=== PATIENT | female | born 1990 | race Two or more races ===

== ENCOUNTER 2023-04-19 05:30 | Day surgery (SDC) | payer OTHER ==
[2023-04-17 14:24] LABS: HEMATOCRIT 39.3 % (36.0-45.00); HEMOGLOBIN 12.8 g/dL (12.0-15.00); MEAN CELL VOLUME 89.9 fL (80.00-100.00); MEAN CORPUSCULAR HEMOGLOBIN 29.2 pg (27.00-32.0); MEAN CORPUSCULAR HGB CONC 32.4 g/dl (32.0-36.0); PLATELET COUNT 344 K/uL (150-450); RED BLOOD COUNT 4.38 M/uL (4.00-6.00)
[2023-04-17 15:04] LABS: ALBUMIN 3.6 gm/dL (3.4-5.0); BILIRUBIN TOTAL 0.39 mg/dL (0.3-1.2); CALCIUM 9.3 mg/dL (8.5-10.1); CREATININE SERUM 0.54 mg/dL (0.55-1.02); GFR 129.23; GLOBULINA 4.2 G/DL (2.4-3.5); POTASSIUM 3.72 mEq/L (3.5-5.1); TOTAL PROTEIN 7.8 gm/dL (6.4-8.2)
[2023-04-17 15:34] LABS: INR 0.98; PARTIAL THROMBOPLASTIN TIME 29.1 SECONDS (22.0-34.0); PROTHROMBIN TIME 10.3 SECONDS (9.0-11.5)
[~2023-04-19 05:30] MED LIST: PANADOL PO; PRENAT PO; SYNTHROID137 MCG PO; SYNTHROID150 MCG PO
== END 2023-04-19 12:45 | disposition home or self-care (01) ==
LOC: CIR.AMB 05:30
PROVIDERS: ATTEND Obstetrics & Gynecology Maternal & Fetal Medicine
DX: O34.31 Maternal care for cervical incompetence, first trimester (principal); Z3A.13 13 weeks gestation of pregnancy; Z20.822 Contact with and (suspected) exposure to COVID-19; Z88.1 Allergy status to other antibiotic agents

== ENCOUNTER 2023-07-20 11:42 | Outpatient (CLI) | payer OTHER | END 2023-07-20 13:40 | disposition home or self-care (01) | LOC: NST 11:42 | PROVIDERS: ATTEND Obstetrics & Gynecology Maternal & Fetal Medicine | DX: Z34.82 Encounter for supervision of other normal pregnancy, second trimester (principal) ==

== ENCOUNTER 2023-07-24 22:03 | Inpatient (IN) | payer OTHER ==
[~2023-07-24] VITALS: Ht 162.6 cm; Wt 87.5 kg
[2023-07-24 23:08] LABS: URINE APPEARANCE Cloudy; URINE BILIRRUBIN Negative (NEGATIVE); URINE BLOOD Negative; URINE COLOR Dark Yellow; URINE GLUCOSE Negative (NEGATIVE); URINE LEUKOCYTE Moderate; URINE NITRATE Negative; URINE PROTEIN 30 (NEGATIVE)
[2023-07-24 23:12] LABS: URINE BACTERIA 5027.2 uL (0.0-1933); URINE RBC 8.6 uL (0.0-20.8); URINE WBC 481.4 uL (0.0-23.2)
[2023-07-24 23:30] LABS: HEMATOCRIT 37.5 % (36.0-45.00); MEAN CORPUSCULAR HEMOGLOBIN 31.7 pg (27.00-32.0); MEAN CORPUSCULAR HGB CONC 34.8 g/dl (32.0-36.0); PLATELET COUNT 284 K/uL (150-450); RED BLOOD COUNT 4.12 M/uL (4.00-6.00); RED CELL DISTRIBUTION WIDTH 12.7 % (11.5-14.5)
[2023-07-24 23:43] LABS: ALBUMIN 3.5 gm/dL (3.4-5.0); BILIRUBIN TOTAL 0.65 mg/dL (0.3-1.2); CALCIUM 9.8 mg/dL (8.5-10.1); GFR 141.23; GLOBULINA 4.2 G/DL (2.4-3.5); POTASSIUM 3.79 mEq/L (3.5-5.1); TOTAL PROTEIN 7.7 gm/dL (6.4-8.2)
[2023-07-24 23:46] LABS: CREATININE SERUM 0.5 mg/dL (0.55-1.02)
[2023-07-25] LABS: URINE EPITHELIAL CELLS > 201.7 uL (0.0-38.8)
[2023-07-25 00:02] LABS: URINE CRYSTALS FEW /HPF
[2023-07-25 00:03] LABS: URINE MUCUS SCANT
[2023-07-27] MEDS ORDERED: NIFEDIPINE ER60 MG PO (07:42)
== END 2023-07-27 14:44 | disposition home or self-care (01) | DRG 833 ==
LOC: LDR 22:03 → OB/GYN 07-25 10:54
PROVIDERS: ADMIT Obstetrics & Gynecology Maternal & Fetal Medicine; ATTEND Obstetrics & Gynecology Maternal & Fetal Medicine
PROC: 4A1HXCZ Monitoring of Products of Conception, Cardiac Rate, External Approach (ICD-10-PCS; principal; 2023-07-24)
DX: O26.892 Other specified pregnancy related conditions, second trimester (principal); R11.2 Nausea with vomiting, unspecified; A05.9 Bacterial foodborne intoxication, unspecified; Z3A.26 26 weeks gestation of pregnancy; Z20.822 Contact with and (suspected) exposure to COVID-19

== ENCOUNTER 2023-08-09 12:36 | Outpatient (CLI) | payer OTHER ==
[~2023-08-09 12:36] MED LIST changes: +NIFEDIPINE ER60 MG PO
== END 2023-08-09 12:56 | disposition home or self-care (01) ==
LOC: NST 12:36
PROVIDERS: ATTEND Obstetrics & Gynecology Maternal & Fetal Medicine
DX: Z34.83 Encounter for supervision of other normal pregnancy, third trimester (principal)

== ENCOUNTER 2023-09-26 19:14 | Inpatient (IN) | payer OTHER ==
[~2023-09-26] VITALS: Ht 162.6 cm; Wt 2.3 kg
[2023-09-27] MEDS ORDERED: RINGERS SOLUTION,LACTATED 1,000 ML IV SCH (00:45)
[2023-09-27] MEDS ORDERED: MAGNESIUM SULFATE IN WATER 4 GM/100 ML PIGGYBACK IV ONE (01:12)
[2023-09-27] MEDS ORDERED: AMPICILLIN SODIUM 2,000 MG VIAL ONE (01:12)
[2023-09-27] MEDS ORDERED: BETAMETHASONE ACETATE,SOD PHOS 30 MG/5 ML ML ONE (01:12)
[2023-09-27] MEDS ORDERED: MAGNESIUM SULFATE IN WATER 0.04 GM/ML IV.SOLN IV ONE (01:12)
[2023-09-27] MEDS ORDERED: AMPICILLIN SODIUM 2,000 MG VIAL IV ONE (01:45)
[2023-09-27] MEDS ORDERED: BETAMETHASONE ACETATE,SOD PHOS 30 MG/5 ML ML IM ONE (01:45)
[2023-09-27] MEDS ORDERED: MAGNESIUM SULFATE IN WATER 500 ML IV SCH (01:45)
[2023-09-27] MEDS ORDERED: MAGNESIUM SULFATE IN WATER 100 ML IV ONE (01:45)
[2023-09-27 02:10] LABS: HEMATOCRIT 32.7 % (36.0-45.00); HEMOGLOBIN 11.5 g/dL (12.0-15.00); MEAN CELL VOLUME 92.1 fL (80.00-100.00); MEAN CORPUSCULAR HEMOGLOBIN 32.5 pg (27.00-32.0); MEAN CORPUSCULAR HGB CONC 35.3 g/dl (32.0-36.0); PLATELET COUNT 259 K/uL (150-450); RED BLOOD COUNT 3.55 M/uL (4.00-6.00); RED CELL DISTRIBUTION WIDTH 13.1 % (11.5-14.5)
[2023-09-27 02:11] LABS: URINE APPEARANCE Cloudy; URINE BILIRRUBIN Negative (NEGATIVE); URINE BLOOD Negative; URINE COLOR Yellow; URINE GLUCOSE Negative (NEGATIVE); URINE LEUKOCYTE Large; URINE NITRATE Negative; URINE PROTEIN Negative (NEGATIVE); URINE UROBILINOGEN 0.2 E.U./dl
[2023-09-27 02:14] LABS: URINE BACTERIA 1099.8 uL (0.0-1933); URINE RBC 2.7 uL (0.0-20.8); URINE WBC 396.7 uL (0.0-23.2)
[2023-09-27] MEDS ORDERED: PRENATAL TABLE1 EAC1 PO (02:25)
[2023-09-27 02:30] LABS: ALBUMIN 2.8 gm/dL (3.4-5.0); BILIRUBIN TOTAL 0.55 mg/dL (0.3-1.2); CALCIUM 9.5 mg/dL (8.5-10.1); CREATININE SERUM 0.45 mg/dL (0.55-1.02); GFR 158.56; GLOBULINA 3.7 G/DL (2.4-3.5); POTASSIUM 3.57 mEq/L (3.5-5.1); TOTAL PROTEIN 6.5 gm/dL (6.4-8.2)
[2023-09-27] MEDS ORDERED: MORPHINE SULFATE 4 MG/ML VIAL IV ONE (02:30)
[2023-09-27 02:42] LABS: URINE YEAST FEW /hpf
[2023-09-27 02:57] LABS: INR 0.96; PARTIAL THROMBOPLASTIN TIME 29.4 SECONDS (22.0-34.0); PROTHROMBIN TIME 10.1 SECONDS (9.0-11.5)
[2023-09-27] MEDS ORDERED: ERYTHROMYCIN BASE 3.5 GM OINT...G. OP ONE (03:26)
[2023-09-27] MEDS ORDERED: OXYTOCIN 10 UNITS/ML VIAL ONE (03:26)
[2023-09-27] MEDS ORDERED: CEFOXITIN SODIUM 2,000 MG VIAL IV ONE (04:53)
[2023-09-27] MEDS ORDERED: AMPICILLIN SODIUM 1,000 MG VIAL IV SCH (05:00)
[2023-09-27] MEDS ORDERED: LEVOTHYROXINE SODIUM 137 MCG TABLET PO SCH (06:00)
[2023-09-27 07:21] LABS: ABG PH 7.063 (7.35-7.45); ABG PO2 8.5 mmHg (80-100); ABG pCO2 89.3 mmHg (35-45); BASE EXCESS -7.7 mmol/l; BICARBONATE 24.9 mmol/l (23-25); SaO2 4.3 %; Tco2 27.6 mmol/l; o2 21 %
[2023-09-27 09:12] LABS: HEMATOCRIT 32.7 % (36.0-45.00); HEMOGLOBIN 11.3 g/dL (12.0-15.00); MEAN CELL VOLUME 90.8 fL (80.00-100.00); MEAN CORPUSCULAR HEMOGLOBIN 31.5 pg (27.00-32.0); MEAN CORPUSCULAR HGB CONC 34.6 g/dl (32.0-36.0); PLATELET COUNT 258 K/uL (150-450); RED CELL DISTRIBUTION WIDTH 12.8 % (11.5-14.5)
[2023-09-27] MEDS ORDERED: PROMETHAZINE HCL 50 MG/ML AMPUL IM PRN (09:30)
[2023-09-27] MEDS ORDERED: MEPERIDINE HCL/PF 25 MG/ML VIAL IM PRN (09:30)
[2023-09-27] MEDS ORDERED: SIMETHICONE 125 MG CAPSULE PO SCH (09:36)
[2023-09-27] MEDS ORDERED: CEFAZOLIN SODIUM 1,000 MG VIAL IV ONE (09:45)
[2023-09-27] MEDS ORDERED: KETOROLAC TROMETHAMINE 30 MG VIAL IM ONE (09:45)
[2023-09-27] MEDS ORDERED: LABETALOL HCL 100 MG/20 ML ML IV PRN (10:15)
[2023-09-27] MEDS ORDERED: KETOROLAC TROMETHAMINE 10 MG TABLET PO SCH (18:00)
[2023-09-27 18:11] LABS: HEMATOCRIT 31.1 % (36.0-45.00); HEMOGLOBIN 10.6 g/dL (12.0-15.00); MEAN CELL VOLUME 90.7 fL (80.00-100.00); MEAN CORPUSCULAR HGB CONC 34.2 g/dl (32.0-36.0); PLATELET COUNT 278 K/uL (150-450); RED BLOOD COUNT 3.42 M/uL (4.00-6.00); RED CELL DISTRIBUTION WIDTH 13.1 % (11.5-14.5)
[2023-09-27] MEDS ORDERED: CEFAZOLIN SODIUM 1,000 MG VIAL IV SCH (21:00)
[2023-09-28] MEDS ORDERED: OxyCODONE HCL/APAP UD (PERCOCET) PO SCH (09:00)
[2023-09-30] MEDS ORDERED: KETO10TA2 PO (11:30)
[2023-09-30] MEDS ORDERED: OXYC1TAB9 PO (11:30)
== END 2023-09-30 17:11 | disposition home or self-care (01) | DRG 786 ==
LOC: OBS/DEL 19:14 → OB/GYN 09-27 00:41 → LDR 09-27 00:41 → OBS/DEL 09-27 00:41 → OB/GYN 09-27 04:51
PROVIDERS: ADMIT Obstetrics & Gynecology Maternal & Fetal Medicine; ATTEND Obstetrics & Gynecology Maternal & Fetal Medicine
PROC: 4A1HXCZ Monitoring of Products of Conception, Cardiac Rate, External Approach (ICD-10-PCS; 2023-09-27)
PROC: 10D00Z1 Extraction of Products of Conception, Low, Open Approach (ICD-10-PCS; principal; 2023-09-27 03:00)
DX: O32.1XX0 Maternal care for breech presentation, not applicable or unspecified (principal); O34.33 Maternal care for cervical incompetence, third trimester; O60.14X0 Preterm labor third trimester with preterm delivery third trimester, not applicable or unspecified; Z3A.35 35 weeks gestation of pregnancy; Z37.0 Single live birth; Z20.822 Contact with and (suspected) exposure to COVID-19